=== PATIENT | male | born 1955 | race Caucasian/White ===

== ENCOUNTER 2020-12-19 20:29 | Emergency (ER) | payer MEDICARE, BC ==
[2020-12-19 20:39] VITALS: BP 156/83; PULSE 73
[2020-12-19] MEDS ORDERED: Sodium Chloride 0.9% 10 ML Syringe FLUSH PRN (20:41)
[2020-12-19] MEDS ORDERED: Ondansetron 4 MG/2 ML SDV IVPUSH ONE (20:53)
[2020-12-19] MEDS ORDERED: Ketorolac 30 MG/ML SDV IVPUSH ONE (20:53)
[2020-12-19] MEDS ORDERED: HYDROmorphone 0.5 MG/0.5 ML Syringe IVPUSH ONE (20:53)
--- NOTE | 2020-12-19 21:43 | EDM.PDOC ---
ED HPI GENERAL MEDICAL PROBLEM - General Chief Complaint: Flank Pain Stated Complaint: POSSIBLE KIDNEY STONE Time Seen by Provider: 12/19/20 20:35 Source of Information: Reports: Patient, RN Notes Reviewed History Limitations: Reports: No Limitations - History of Present Illness INITIAL COMMENTS - FREE TEXT/NARRATIVE: Patient is a 64-year-old male presenting to the emergency department with complaints of right-sided flank and abdominal pain that began around 3 PM this afternoon. He had an angiogram completed in [place] and was on his way home when he developed the pain. He has a history of kidney stones and states he is "90% sure" that he has another. Denies any fever or chills. He has had some nausea but no vomiting or diarrhea. States the angiogram went well and he is scheduled to have bypass surgery next week. He has been able to pass all of his kidney stones without intervention in the past. His urologist is Dr. Armstrong. He has not taken anything for pain prior to coming to the ER. Right Flank Pain Score (Numeric/FACES): 9 - Related Data Allergies Allergy/AdvReac Type Severity Reaction Status Date / Time diphenhydramine Allergy Stomach Verified 12/19/20 20:40 [From Benadryl] Upset Home Meds: Home Meds Tamsulosin HCl [Flomax] 0.4 mg PO DAILY #7 cap.er.24h 11/25/16 [Rx] allopurinoL [Allopurinol] 300 mg PO DAILY 11/25/16 [History] amLODIPine Besylate [Amlodipine Besylate] 10 mg PO DAILY 11/25/16 [History] Ascorbic Acid [Vitamin C] 500 mg PO DAILY 12/19/20 [History] Aspirin 81 mg PO DAILY 12/19/20 [History] Cholecalciferol (Vitamin D3) [Vitamin D3] 5,000 unit PO DAILY 12/19/20 [History] Cyanocobalamin (Vitamin B12) [Vitamin B12] 1,000 mcg PO DAILY 12/19/20 [History] Furosemide 80 mg PO DAILY 12/19/20 [History] Losartan [Cozaar] 50 mg PO DAILY 12/19/20 [History] Multivitamin 1 tab PO DAILY 12/19/20 [History] Rosuvastatin [Crestor] 5 mg PO DAILY 12/19/20 [History] Timolol Maleate/PF [Timolol Maleate 0.5% Eye Drop] 1 drop EYEBOTH DAILY 12/19/20 [History] Zinc 50 mg PO DAILY 12/19/20 [History] Past Medical History Cardiovascular History: Reports: High Cholesterol, Hypertension Respiratory History: Reports: Sleep Apnea Gastrointestinal History: Reports: GERD Genitourinary History: Reports: BPH, Renal Calculus - Past Surgical History Cardiovascular Surgical History: Reports: Other (See Below) Other Cardiovascular Surgeries/Procedures: scheduled for quad bipass on 12/24 GI Surgical History: Reports: Appendectomy Social & Family History - Family History Family Medical History: No Pertinent Family History - Tobacco Use Tobacco Use Status *Q: Never Tobacco User - Caffeine Use Caffeine Use: Reports: Coffee - Recreational Drug Use Recreational Drug Use: No ED ROS GENERAL - Review of Systems Review Of Systems: Comprehensive ROS is negative, except as noted in HPI. ED EXAM, RENAL/ - Physical Exam Exam: See Below Exam Limited By: No Limitations General Appearance: Alert, Mild Distress Respiratory/Chest: No Respiratory Distress, Lungs Clear, Normal Breath Sounds, No Accessory Muscle Use, Chest Non-Tender Cardiovascular: Normal Peripheral Pulses, Regular Rate, Rhythm, No Edema, No Gallop, No JVD, No Murmur, No Rub GI/Abdominal: Normal Bowel Sounds, Soft, Non-Tender, No Organomegaly, No Distention, No Abnormal Bruit, No Mass Back Exam: Normal Inspection, Full Range of Motion, CVA Tenderness (R) (Mild). No: CVA Tenderness (L) Neurological: Alert, Oriented, CN II-XII Intact, Normal Cognition, Normal Gait, Normal Reflexes, No Motor/Sensory Deficits Psychiatric: Normal Affect, Normal Mood Skin Exam: Warm, Dry, Intact, Normal Color, No Rash Course - Vital Signs Last Recorded V/S: Last Vital Signs Temp 97.1 F 12/19/20 20:36 Pulse 73 12/19/20 20:36 Resp 18 12/19/20 20:36 BP 156/83 H 12/19/20 20:36 Pulse Ox 97 12/19/20 20:36 - Orders/Labs/Meds Orders: Active Orders 24 hr Category Date Time Status Peripheral IV Care [RC] . DIRECTED Care 12/19/20 20:42 Active Abdomen Pelvis wo Cont [CT] Stat Exams 12/19/20 20:53 Taken Sodium Chloride 0.9% [Saline Flush] Med 12/19/20 20:41 Active 10 ml FLUSH ASDIRECTED PRN Peripheral IV Insertion Adult [OM.PC] Stat Oth 12/19/20 20:41 Ordered Labs: Laboratory Tests 12/19/20 12/19/20 12/19/20 Range/Units 20:51 20:51 21:43 WBC 7.91 (4.23-9.07) K/mm3 RBC 4.57 L (4.63-6.08) M/mm3 Hgb 14.4 (13.7-17.5) gm/dl Hct 44.1 (40.1-51.0) % MCV 96.5 H (79.0-92.2) fl MCH 31.5 (25.7-32.2) pg MCHC 32.7 (32.2-35.5) g/dl RDW Std Deviation 47.6 H (35.1-43.9) fL Plt Count 191 (163-337) K/mm3 MPV 9.5 (9.4-12.3) fl Neut % (Auto) 72.7 H (34.0-67.9) % Lymph % (Auto) 17.6 L (21.8-53.1) % Craig % (Auto) 8.5 (5.3-12.2) % Eos % (Auto) 0.8 (0.8-7.0) Baso % (Auto) 0.3 (0.1-1.2) % Neut # (Auto) 5.76 H (1.78-5.38) K/mm3 Lymph # (Auto) 1.39 (1.32-3.57) K/mm3 Craig # (Auto) 0.67 (0.30-0.82) K/mm3 Eos # (Auto) 0.06 (0.04-0.54) K/mm3 Baso # (Auto) 0.02 (0.01-0.08) K/mm3 Sodium 141 (136-145) mEq/L Potassium 3.8 (3.5-5.1) mEq/L Chloride 103 (98-107) mEq/L Carbon Dioxide 26 (21-32) mEq/L Anion Gap 15.8 H (5-15) BUN 14 (7-18) mg/dL Creatinine 1.2 (0.7-1.3) mg/dL Est Cr Clr Drug Dosing 59.38 mL/min Estimated GFR (MDRD) > 60 (>60) mL/min BUN/Creatinine Ratio 11.7 L (14-18) Glucose 116 H (80-115) mg/dL Calcium 9.2 (8.5-10.1) mg/dL Total Bilirubin 0.4 (0.2-1.0) mg/dL AST 19 (15-37) U/L ALT 32 (16-63) U/L Alkaline Phosphatase 66 (46-116) U/L Total Protein 7.4 (6.4-8.2) g/dl Albumin 4.0 (3.4-5.0) g/dl Globulin 3.4 gm/dL Albumin/Globulin Ratio 1.2 (1-2) Urine Color Yellow (Yellow) Urine Appearance Clear (Clear) Urine pH 7.5 (5.0-8.0) Ur Specific Bethany 1.020 (1.005-1.030) Urine Protein Negative (Negative) Urine Glucose (UA) Negative (Negative) Urine Ketones 1+ H (Negative) Urine Occult Blood 2+ H (Negative) Urine Nitrite Negative (Negative) Urine Bilirubin Negative (Negative) Urine Urobilinogen 0.2 (0.2-1.0) Ur Leukocyte Esterase Negative (Negative) Urine RBC 20-30 H (0-5) /hpf Urine WBC Not seen (0-5) /hpf Ur Epithelial Cells Not seen (0-5) /hpf Urine Bacteria Not seen (FEW) /hpf Urine Mucus Rare (FEW) /hpf - Re-Assessments/Exams Free Text/Narrative Re-Assessment/Exam: Patient is a 64-year-old male presenting to the emergency department with complaints of acute onset of right-sided flank and abdominal pain around 3 PM this afternoon. He describes as a sharp cramping sensation. He has had kidney stones in the past and states he is quite sure that he is having one again. He had angiogram completed in [place] today which she states went well. He is scheduled to have bypass surgery next week. He has no chest pain at this time. Denies any obvious hematuria. He has had no vomiting but is nauseous. I have ordered blood work, urinalysis, and a CT scan of the abdomen pelvis without contrast. I will give him Zofran 4 mg IV, Dilaudid 0.5 mg IV, and Toradol 30 mg IV. 12/19/20 22:13 Hematology was grossly unremarkable. Urinalysis showed 1+ ketones, 2+ occult blood, and 20-30 RBCs. There is no signs of infection. CT scan of the abdomen pelvis shows " multiple calculi again noted in both kidneys. There is residual contrast in the right kidney. There is mild right hydroureteronephrosis the suspected punctuate calculus in the distal right ureter. Contrast limits definitive identification of the calculus but is suspected on image 118 series 2. Impression of the CT scan shows mild right-sided obstructive uropathy. Results discussed with patient. We will send him home with a urine strainer. I will also write [facility] med[facility] for Zofran and Percocet for pain. Discussed that if his symptoms do not resolve by Wednesday, I would recommend contacting his urologist, Dr. Hadley Reyna for follow-up. He is scheduled to have his bypass surgery on Wednesday. Discussed return precautions. Discharge instructions as documented. Departure - Departure Time of Disposition: 22:13 Disposition: Home, Self-Care 01 Condition: Good Clinical Impression: Kidney stone on right side - Discharge Information *PRESCRIPTION DRUG MONITORING PROGRAM REVIEWED*: Yes *COPY OF PRESCRIPTION DRUG MONITORING REPORT IN PATIENT EMILI: No Instructions: Kidney Stones, [id number] Referrals: Johnny Patton MD [Primary Care Provider] - Romeo Armstrong MD [Ordering Only Provider] - Forms: ED Department Discharge Additional Instructions: You were seen in the emergency department today for right-sided flank and abdominal pain. Work-up included blood work, urinalysis, and a CT scan of the abdomen pelvis. Results of your CT are consistent with a kidney stone in your right ureter. Unfortunately, the contrast from the angiogram is obscuring the stones we cannot get an accurate measurement, however there are certain to that there is a stone there. On the ER, you received pain and nausea medications with did improve your symptoms. Recommend routine Tylenol and ibuprofen for discomfort. For pain not relieved by these measures, you have been provided a prescription for Percocet. Take this medication only as prescribed and do not work or drive for 12 hours after taking this medication as it can be sedating. You have also been provided with a prescription for Zofran for nausea. Even had sent home with a urine strainer. Recommend straining your urine each time that you go to watch for passage of the stone. If you are still having pain by Wednesday morning, recommend contacting Dr. Armstrong's office to discuss follow-up. If you should experience any new or worsening symptoms, please not hesitate to return to the emergency department for reevaluation. Sepsis Event Note (ED) - Evaluation Sepsis Screening Result: No Definite Risk - Focused Exam Vital Signs: Vital Signs Temp Pulse Resp BP Pulse Ox 12/19/20 20:36 97.1 F 73 18 156/83 H 97 - My Orders Last 24 Hours: My Active Orders 12/19/20 20:41 Sodium Chloride 0.9% [Saline Flush] 10 ml FLUSH ASDIRECTED PRN Peripheral IV Insertion Adult [OM.PC] Stat 12/19/20 20:42 Peripheral IV Care [RC] . DIRECTED 12/19/20 20:53 Abdomen Pelvis wo Cont [CT] Stat - Assessment/Plan Last 24 Hours: My Active Orders 12/19/20 20:41 Sodium Chloride 0.9% [Saline Flush] 10 ml FLUSH ASDIRECTED PRN Peripheral IV Insertion Adult [OM.PC] Stat 12/19/20 20:42 Peripheral IV Care [RC] . DIRECTED 12/19/20 20:53 Abdomen Pelvis wo Cont [CT] Stat
--- NOTE | 2020-12-20 07:26 | CT ---
CT abdomen and pelvis Technique: Multiple axial sections through the pelvis were obtained. Intravenous and oral contrast was not utilized. Reconstructed coronal and sagittal images were obtained. Comparison: Prior CT abdomen and pelvis study of 11/23/19. Findings: Contrast appears to be present within the right kidney causing slight enhancement. Patient gave a history of previous angiogram performed at a different institution. Contrast within the right kidney and right ureter are seen. Given the dilatation of the ureter, a distal ureteral stone is suspected. Size of the stone cannot be measured because of obscuration from the contrast. Slight areas of contrast are seen within the left ureter. Numerous small nonobstructing calculi are seen within the left kidney. Right kidney shows a small cyst within the midpole measuring 1.6 cm. Nothing acute is appreciated within either lung base. Noncontrast appearance of the liver shows no focal parenchymal abnormality. Gallbladder shows no calcification to indicate cholelithiasis. Spleen appears within normal limits. Adrenal glands show no nodule. No pancreatic abnormality is seen. Abdominal aorta shows atherosclerotic change with no aneurysm. No retroperitoneal adenopathy or mesenteric abnormalities are seen. No pelvic mass or adenopathy is identified. Small fat-containing bilateral inguinal hernias are noted. No free fluid or inflammatory change is seen. Minimal diverticuli are seen within portions of the descending sigmoid colon. Appendix is not definitely visualized. Bone window settings were reviewed which show scattered degenerative change within the spine. No acute osseous abnormality is appreciated. Impression: 1. Contrast from previous angiogram performed at a different institution. 2. Contrast within the dilated right ureter and right kidney. Probable obstructing stone within the distal right ureter. Size of the stone cannot be calculated due to obscuration from the contrast. 3. Small amount of contrast within the left ureter. Numerous small nonobstructing calculi are seen with the left kidney. 4. Other findings as noted above which are believed to be incidental. Diagnostic code #3 I agree with preliminary report from [facility], finalized on 12/19/20, 11:02 PM [employer]
== END 2020-12-19 22:33 | disposition home or self-care (01) ==
LOC: JD.ED 20:29
DX: N13.2 Hydronephrosis with renal and ureteral calculous obstruction (principal); I10 Essential (primary) hypertension; E78.00 Pure hypercholesterolemia, unspecified; Z88.8 Allergy status to other drugs, medicaments and biological substances; Z79.82 Long term (current) use of aspirin; Z79.899 Other long term (current) drug therapy
CPT/HCPCS: 36415; 74176; 80053; 81001; 85025; 96374; 96375; 99284; J1170; J1885; J2405

== ENCOUNTER 2021-08-26 07:18 | Day surgery (SDC) | payer MEDICARE, BC ==
[~2021-08-26 07:18] MED LIST: Brimonidine 0.2% Ophth Soln 5 ML Bottle EYELF SCH; Cefuroxime 10 MG/ML SYRINGE EYELF SCH; Lidocaine 1% PF 2 ML SDV INJECT SCH; Phenylephrine 2.5% Ophth Soln 2 ML Bot EYELF SCH; Pilocarpine 4% Ophth Soln 15 ML Bot EYELF SCH; Polymyxin B/Trimethoprim 10 ML Bottle EYELF SCH; Tetracaine HCl/PF 0.5% 4 ML Bottle EYEBOTH SCH; Tropicamide 1% Ophth Soln 15 ML Bottle EYELF SCH
[2021-08-26] MEDS: Polymyxin B/Trimethoprim 10 ML Bottle EYELF SCH ×4 (07:30→09:08)
[2021-08-26 07:35] VITALS: PULSE 70
[2021-08-26] MEDS: Brimonidine 0.2% Ophth Soln 5 ML Bottle EYELF SCH ×4 (07:35→09:08)
[2021-08-26] MEDS: Phenylephrine 2.5% Ophth Soln 2 ML Bot EYELF SCH ×6 (07:40→08:42)
--- NOTE | 2021-08-26 07:44 | PCM.PREANE ---
Preanesthetic Assessment - Anesthesia/Transfusion/Family Hx Anesthesia History: Prior Anesthesia Without Reaction Family History of Anesthesia Reaction: No Transfusion History: No Prior Transfusion(s) Intubation History: Unknown - Review of Systems General: No Symptoms Pulmonary: No Symptoms Cardiovascular: No Symptoms Gastrointestinal: No Symptoms Neurological: No Symptoms Other: Reports: None - Physical Assessment NPO Status Date: 08/25/21 NPO Status Time: 19:00 Vital Signs: Last Vital Signs Temp 36.6 C 08/26/21 07:15 Pulse 70 08/26/21 07:15 Resp 16 08/26/21 07:15 BP 140/78 08/26/21 07:15 Pulse Ox 98 08/26/21 07:15 Height: 76.2 m Weight: 30.844 kg ASA Class: 2 Mental Status: Alert & Oriented x3 Airway Class: Mallampati = 3 Dentition: Reports: Bridge (upper permanent) Thyro-Mental Finger Breadths: 3 Mouth Opening Finger Breadths: 2 ROM/Head Extension: Full Lungs: Clear to Auscultation, Normal Respiratory Effort Cardiovascular: Regular Rate, Regular Rhythm - Allergies Allergies/Adverse Reactions: Allergies Allergy/AdvReac Type Severity Reaction Status Date / Time diphenhydramine AdvReac Stomach Verified 08/26/21 07:39 [From Benadryl] Upset - Anesthesia Plan Beta Sawyer: Metoprolol Med Last Dose Date: 08/26/21 Med Last Dose Time: 06:00 - Acknowledgements Anesthesia Type Planned: MAC Pt an Appropriate Candidate for the Planned Anesthesia: Yes Alternatives and Risks of Anesthesia Discussed w Pt/Guardian: Yes Pt/Guardian Understands and Agrees with Anesthesia Plan: Yes PreAnesthesia Questionnaire HEENT History: Reports: Cataract, Impaired Vision Cardiovascular History: Reports: CAD, High Cholesterol, Hypertension Respiratory History: Reports: Sleep Apnea Gastrointestinal History: Reports: GERD Genitourinary History: Reports: BPH, Renal Calculus Musculoskeletal History: Reports: None Neurological History: Reports: None Psychiatric History: Reports: None Endocrine/Metabolic History: Reports: None - Past Surgical History Cardiovascular Surgical History: Reports: Other (See Below) Other Cardiovascular Surgeries/Procedures: scheduled for quad bipass on 12/24 GI Surgical History: Reports: Appendectomy - SUBSTANCE USE Tobacco Use Status *Q: Never Tobacco User - HOME MEDS Home Medications: Home Meds Tamsulosin HCl [Flomax] 0.4 mg PO DAILY #7 cap.er.24h 11/25/16 [Rx] allopurinoL [Allopurinol] 300 mg PO DAILY 11/25/16 [History] amLODIPine Besylate [Amlodipine Besylate] 10 mg PO DAILY 11/25/16 [History] Ascorbic Acid [Vitamin C] 500 mg PO DAILY 12/19/20 [History] Aspirin 81 mg PO DAILY 12/19/20 [History] Cholecalciferol (Vitamin D3) [Vitamin D3] 5,000 unit PO DAILY 12/19/20 [History] Cyanocobalamin (Vitamin B12) [Vitamin B12] 1,000 mcg PO DAILY 12/19/20 [History] Furosemide 80 mg PO DAILY 12/19/20 [History] Losartan [Cozaar] 50 mg PO DAILY 12/19/20 [History] Multivitamin 1 tab PO DAILY 12/19/20 [History] Rosuvastatin [Crestor] 5 mg PO DAILY 12/19/20 [History] Timolol Maleate/PF [Timolol Maleate 0.5% Eye Drop] 1 drop EYEBOTH DAILY 12/19/20 [History] Zinc 50 mg PO DAILY 12/19/20 [History] - CURRENT (IN HOUSE) MEDS Current Meds: Current Medications Brimonidine Tartrate (Brimonidine 0.2% Ophth Soln 5 Ml Bottle) 0 ml EYELF ASDIRECTED SHARIF Stop: 08/26/21 16:00 Last Admin: 08/26/21 07:35 Dose: 1 drop Documented by: Cefuroxime Sodium (Cefuroxime 10 Mg/Ml Syringe) 0 mg EYELF ASDIRECTED SHARIF Stop: 08/26/21 16:00 Lidocaine HCl (Lidocaine 1% Pf 2 Ml Sdv) 0 ml INJECT ASDIRECTED SHARIF Stop: 08/26/21 18:00 Phenylephrine HCl (Phenylephrine 2.5% Ophth Soln 2 Ml Bot) 0 ml EYELF ASDIRE CTED SHARIF Stop: 08/26/21 18:00 Pilocarpine HCl (Pilocarpine 4% Ophth Soln 15 Ml Bot) 0 ml EYELF ASDIRECTED SHARIF Stop: 08/26/21 18:00 Polymyxin/Trimethoprim Sulfate (Polymyxin B/Trimethoprim 10 Ml Bottle) 0 ml EYELF ASDIRECTED SHARIF Stop: 08/26/21 18:00 Last Admin: 08/26/21 07:30 Dose: 1 drop Documented by: Tetracaine HCl (Tetracaine Hcl/Pf 0.5% 4 Ml Bottle) 0 ml EYEBOTH ASDIRECTED SHARIF Stop: 08/26/21 18:00 Tropicamide (Tropicamide 1% Ophth Soln 15 Ml Bottle) 0 ml EYELF ASDIRECTED SHARIF Stop: 08/26/21 18:00 Discontinued Medications Brimonidine Tartrate (Brimonidine 0.2% Ophth Soln 5 Ml Bottle) 0 ml EYELF ASDIRECTED SHARIF Stop: 07/03/21 18:00 Cefuroxime Sodium (Cefuroxime 10 Mg/Ml Syringe) 0 mg EYELF ASDIRECTED SHARIF Stop: 07/03/21 18:00 Lidocaine HCl (Lidocaine 1% Pf 2 Ml Sdv) 0 ml INJECT ASDIRECTED SHARIF Stop: 07/03/21 18:00 Phenylephrine HCl (Phenylephrine 2.5% Ophth Soln 2 Ml Bot) 0 ml EYELF ASDIRECTED SHARIF Stop: 07/03/21 18:00 Pilocarpine HCl (Pilocarpine 4% Ophth Soln 15 Ml Bot) 0 ml EYELF ASDIRECTED SHARIF Stop: 07/03/21 18:00 Polymyxin/Trimethoprim Sulfate (Polymyxin B/Trimethoprim 10 Ml Bottle) 0 ml EYELF ASDIRECTED SHARIF Stop: 07/03/21 18:00 Tetracaine HCl (Tetracaine Hcl/Pf 0.5% 4 Ml Bottle) 0 ml EYEBOTH ASDIRECTED SHARIF Stop: 07/03/21 18:00 Tropicamide (Tropicamide 1% Ophth Soln 15 Ml Bottle) 0 ml EYELF ASDIRECTED SHARIF Stop: 07/03/21 18:00
[2021-08-26] MEDS: Tropicamide 1% Ophth Soln 15 ML Bottle EYELF SCH ×4 (07:45→08:21)
[2021-08-26] MEDS: Tetracaine HCl/PF 0.5% 4 ML Bottle EYEBOTH SCH ×5 (08:26→08:50)
[2021-08-26] MEDS: Pilocarpine 4% Ophth Soln 15 ML Bot EYELF SCH ×2 (08:35→09:08)
[2021-08-26] MEDS: Lidocaine 1% PF 2 ML SDV INJECT SCH ×2 (08:35→08:51)
[2021-08-26] MEDS: Cefuroxime 10 MG/ML SYRINGE EYELF SCH ×2 (08:35→09:07)
--- NOTE | 2021-08-26 09:08 | PCM48HPAN ---
Post Anesthesia Note - EVALUATION WITHIN 48HRS OF ANESTHETIC Vital Signs in Normal Range: Yes Patient Participated in Evaluation: Yes Respiratory Function Stable: Yes Airway Patent: Yes Cardiovascular Function Stable: Yes Hydration Status Stable: Yes Pain Control Satisfactory: Yes Nausea and Vomiting Control Satisfactory: Yes Mental Status Recovered: Yes Vital Signs: Last Vital Signs Temp 36.6 C 08/26/21 07:15 Pulse 70 08/26/21 07:15 Resp 16 08/26/21 07:15 BP 140/78 08/26/21 07:15 Pulse Ox 98 08/26/21 07:15
[2021-08-26 09:23] VITALS: BP 136/85
== END 2021-08-26 09:17 | disposition home or self-care (01) ==
LOC: JD.SDS 07:18
PROVIDERS: ATTEND Ophthalmology
DX: H25.813 Combined forms of age-related cataract, bilateral (principal); H21.81 Floppy iris syndrome; H16.103 Unspecified superficial keratitis, bilateral; H16.223 Keratoconjunctivitis sicca, not specified as Sjogren's, bilateral; H02.831 Dermatochalasis of right upper eyelid; H02.834 Dermatochalasis of left upper eyelid; H35.373 Puckering of macula, bilateral; H35.3131 Nonexudative age-related macular degeneration, bilateral, early dry stage; H35.363 Drusen (degenerative) of macula, bilateral; H21.42 Pupillary membranes, left eye; E78.00 Pure hypercholesterolemia, unspecified; I10 Essential (primary) hypertension; M10.9 Gout, unspecified; Z90.49 Acquired absence of other specified parts of digestive tract; Z98.890 Other specified postprocedural states; Z79.82 Long term (current) use of aspirin; Z79.899 Other long term (current) drug therapy; G47.30 Sleep apnea, unspecified
CPT/HCPCS: 66982; J0697; C1780

== ENCOUNTER 2021-09-09 09:51 | Day surgery (SDC) | payer MEDICARE, BC ==
[2021-09-09] MEDS: Polymyxin B/Trimethoprim 10 ML Bottle EYERT SCH ×4 (10:40→12:36)
[2021-09-09] MEDS: Brimonidine 0.2% Ophth Soln 5 ML Bottle EYERT SCH ×4 (10:46→12:36)
[2021-09-09] MEDS: Phenylephrine 2.5% Ophth Soln 2 ML Bot EYERT SCH ×6 (10:51→12:12)
[2021-09-09] MEDS: Tropicamide 1% Ophth Soln 15 ML Bottle EYERT SCH ×4 (10:56→11:49)
--- NOTE | 2021-09-09 11:02 | PCM.PREANE ---
Preanesthetic Assessment - Procedure Proposed Procedure: Right eye cataract extraction and IOL - Anesthesia/Transfusion/Family Hx Anesthesia History: Prior Anesthesia Without Reaction Family History of Anesthesia Reaction: No Transfusion History: No Prior Transfusion(s) Intubation History: Unknown - Review of Systems General: No Symptoms Pulmonary: No Symptoms Cardiovascular: No Symptoms Gastrointestinal: No Symptoms Neurological: No Symptoms Other: Reports: None - Physical Assessment NPO Status Date: 09/08/21 NPO Status Time: 21:00 Vital Signs: Last Vital Signs Temp 98.0 F 09/09/21 10:10 Pulse 70 09/09/21 10:10 Resp 16 09/09/21 10:10 BP 120/80 09/09/21 10:10 Pulse Ox 96 09/09/21 10:10 Height: 1.73 m Weight: 113.398 kg ASA Class: 3 Mental Status: Alert & Oriented x3 Airway Class: Mallampati = 2 Dentition: Reports: Partial (permanent), Caries Thyro-Mental Finger Breadths: 2 Mouth Opening Finger Breadths: 2 ROM/Head Extension: Full Lungs: Clear to Auscultation, Normal Respiratory Effort Cardiovascular: Regular Rate, Regular Rhythm, No Murmurs - Allergies Allergies/Adverse Reactions: Allergies Allergy/AdvReac Type Severity Reaction Status Date / Time diphenhydramine AdvReac Stomach Verified 09/09/21 10:22 [From Benadryl] Upset - Acknowledgements Anesthesia Type Planned: MAC Pt an Appropriate Candidate for the Planned Anesthesia: Yes Alternatives and Risks of Anesthesia Discussed w Pt/Guardian: Yes Pt/Guardian Understands and Agrees with Anesthesia Plan: Yes PreAnesthesia Questionnaire HEENT History: Reports: Cataract, Hard of Hearing, Impaired Vision Cardiovascular History: Reports: CAD, High Cholesterol, Hypertension Respiratory History: Reports: Sleep Apnea Gastrointestinal History: Reports: GERD Genitourinary History: Reports: BPH, Renal Calculus Musculoskeletal History: Reports: Gout Neurological History: Reports: None Psychiatric History: Reports: None Endocrine/Metabolic History: Reports: None Hematologic History: Reports: Other (See Below) Other Hematologic History: On plavix Immunologic History: Reports: None Oncologic (Cancer) History: Reports: None Dermatologic History: Reports: None - Past Surgical History Cardiovascular Surgical History: Reports: Other (See Below) Other Cardiovascular Surgeries/Procedures: scheduled for quad bypass on 12/24/20 GI Surgical History: Reports: Appendectomy Dermatological Surgical History: Reports: Other (See Below) Other Dermatological Surgeries/Procedures: growth removed ankle as a child - SUBSTANCE USE Tobacco Use Status *Q: Never Tobacco User Tobacco Use Within Last Twelve Months: No Second Hand Smoke Exposure: No Days Per Week of Alcohol Use: 2 Number of Drinks Per Day: 2 Total Drinks Per Week: 4 Recreational Drug Use History: No - HOME MEDS Home Medications: Home Meds Tamsulosin HCl [Flomax] 0.4 mg PO DAILY #7 cap.er.24h 11/25/16 [Rx] allopurinoL [Allopurinol] 300 mg PO DAILY 11/25/16 [History] amLODIPine Besylate [Amlodipine Besylate] 10 mg PO DAILY 11/25/16 [History] Ascorbic Acid [Vitamin C] 500 mg PO DAILY 12/19/20 [History] Aspirin 81 mg PO DAILY 12/19/20 [History] Cholecalciferol (Vitamin D3) [Vitamin D3] 5,000 unit PO DAILY 12/19/20 [History] Cyanocobalamin (Vitamin B12) [Vitamin B12] 1,000 mcg PO DAILY 12/19/20 [History] Furosemide 80 mg PO DAILY 12/19/20 [History] Losartan [Cozaar] 50 mg PO DAILY 12/19/20 [History] Multivitamin 1 tab PO DAILY 12/19/20 [History] Rosuvastatin [Crestor] 5 mg PO DAILY 12/19/20 [History] Timolol Maleate/PF [Timolol Maleate 0.5% Eye Drop] 1 drop EYEBOTH DAILY 12/19/20 [History] Zinc 50 mg PO DAILY 12/19/20 [History] - CURRENT (IN HOUSE) MEDS Current Meds: Current Medications Brimonidine Tartrate (Brimonidine 0.2% Ophth Soln 5 Ml Bottle) 0 ml EYERT ASDIRECTED SHARIF Stop: 09/09/21 16:00 Last Admin: 09/09/21 10:46 Dose: 1 drop Documented by: Cefuroxime Sodium (Cefuroxime 10 Mg/Ml Syringe) 0 mg EYERT ASDIRECTED SHARIF Stop: 09/09/21 16:00 Lidocaine HCl (Lidocaine 1% Pf 2 Ml Sdv) 0 ml INJECT ASDIRECTED SHARIF Stop: 09/09/21 16:00 Phenylephrine HCl (Phenylephrine 2.5% Ophth Soln 2 Ml Bot) 0 ml EYERT ASDIRECTED SHARIF Stop: 09/09/21 16:00 Last Admin: 09/09/21 10:51 Dose: 1 drop Documented by: Pilocarpine HCl (Pilocarpine 4% Ophth Soln 15 Ml Bot) 0 ml EYERT ASDIRECTED SHARIF Stop: 09/09/21 16:00 Polymyxin/Trimethoprim Sulfate (Polymyxin B/Trimethoprim 10 Ml Bottle) 0 ml EYERT ASDIRECTED SHARIF Stop: 09/09/21 16:00 Last Admin: 09/09/21 10:40 Dose: 1 drop Documented by: Tetracaine HCl (Tetracaine Hcl/Pf 0.5% 4 Ml Bottle) 0 ml EYEBOTH ASDIRECTED SHARIF Stop: 09/09/21 16:00 Tropicamide (Tropicamide 1% Ophth Soln 15 Ml Bottle) 0 ml EYERT ASDIRECTED SHARIF Stop: 09/09/21 16:00
[2021-09-09] MEDS: Tetracaine HCl/PF 0.5% 4 ML Bottle EYEBOTH SCH ×3 (11:59→12:16)
[2021-09-09] MEDS: Lidocaine 1% PF 2 ML SDV INJECT SCH ×2 (12:04→12:17)
[2021-09-09] MEDS: Cefuroxime 10 MG/ML SYRINGE EYERT SCH ×2 (12:04→12:36)
[2021-09-09] MEDS: Pilocarpine 4% Ophth Soln 15 ML Bot EYERT SCH ×2 (12:05→12:36)
--- NOTE | 2021-09-09 12:37 | PCM48HPAN ---
Post Anesthesia Note - EVALUATION WITHIN 48HRS OF ANESTHETIC Vital Signs in Normal Range: Yes Patient Participated in Evaluation: Yes Respiratory Function Stable: Yes Airway Patent: Yes Cardiovascular Function Stable: Yes Hydration Status Stable: Yes Pain Control Satisfactory: Yes Nausea and Vomiting Control Satisfactory: Yes Mental Status Recovered: Yes Vital Signs: Last Vital Signs Temp 36.7 C 09/09/21 10:10 Pulse 70 09/09/21 10:10 Resp 16 09/09/21 10:10 BP 120/80 09/09/21 10:10 Pulse Ox 96 09/09/21 10:10
[2021-09-09 12:47] VITALS: BP 126/74; PULSE 78
== END 2021-09-09 12:46 | disposition home or self-care (01) ==
LOC: JD.SDS 09:51
PROVIDERS: ATTEND Ophthalmology
DX: H25.811 Combined forms of age-related cataract, right eye (principal); H35.373 Puckering of macula, bilateral; H35.3131 Nonexudative age-related macular degeneration, bilateral, early dry stage; H35.363 Drusen (degenerative) of macula, bilateral; H02.834 Dermatochalasis of left upper eyelid; H02.831 Dermatochalasis of right upper eyelid; H21.81 Floppy iris syndrome; H21.41 Pupillary membranes, right eye; E78.00 Pure hypercholesterolemia, unspecified; M10.9 Gout, unspecified; I25.10 Atherosclerotic heart disease of native coronary artery without angina pectoris; I10 Essential (primary) hypertension; Z90.49 Acquired absence of other specified parts of digestive tract; Z98.890 Other specified postprocedural states; Z79.899 Other long term (current) drug therapy; Z79.82 Long term (current) use of aspirin; Z96.1 Presence of intraocular lens; Z88.8 Allergy status to other drugs, medicaments and biological substances
CPT/HCPCS: 66982; C1780